=== PATIENT | female | born 1980 | race Two or more races ===

== ENCOUNTER 2023-01-20 17:48 | Emergency (ER) | payer MEDICAID ==
[~2023-01-20] VITALS: Ht 154.9 cm; Wt 84.1 kg
[2023-01-20] MEDS ORDERED: ALBU18HF12 IH ×2 (17:51→19:43)
[2023-01-20 18:26] LABS: COVID AG,FIA SOURCE NASAL SWAB
[2023-01-20 19:29] LABS: INFLUENZA TYPE A NEGATIVE FOR TYPE A (NEGATIVE); INFLUENZA TYPE B NEGATIVE FOR TYPE B (NEGATIVE)
[2023-01-20 19:34] LABS: SARS-COV2 (COVID) ANTIGEN,FIA Positive (Negative)
[2023-01-20] MEDS ORDERED: NIRM1TAB4 PO ×2 (19:36→19:42)
[2023-01-20] MEDS ORDERED: IBUP-1492 PO (19:44)
[2023-01-20 19:45] VITALS: BP 127/66; PULSE 90; RESP 20; TEMP 98.9
== END 2023-01-20 19:51 | disposition home or self-care (01) ==
LOC: EMS 17:49
DX: U07.1 COVID-19 (principal); J45.909 Unspecified asthma, uncomplicated
CPT/HCPCS: 87804; 99283

== ENCOUNTER 2023-01-22 20:33 | Emergency (ER) | payer MEDICAID ==
[~2023-01-22] VITALS: Ht 152.4 cm; Wt 83.5 kg
[~2023-01-22 20:33] MED LIST: ALBU18HF12 IH; IBUP-1492 PO; NIRM1TAB4 PO
[2023-01-22 20:45] VITALS: BP 128/74; PULSE 90; RESP 17; TEMP 98.6
[2023-01-22] MEDS ORDERED: GuaiFENesin/D-METHORPHAN [SUGAR-FREE] 200-20MG/10 ML SYRUP UDCUP PO ONE (21:30)
[2023-01-22] MEDS ORDERED: ACETAMINOPHEN 500 MG TABLET PO ONE (21:30)
[2023-01-22] MEDS ORDERED: IBUPROFEN 600 MG TABLET PO ONE (21:30)
[2023-01-22] MEDS ORDERED: ALBUTEROL SULFATE HFA 90 MCG/PUFF 8 GM INHALER IH ONE (22:45)
[2023-01-22] MEDS ORDERED: PERCT PO (23:58)
[2023-01-22] MEDS ORDERED: ONDA-104 PO (23:58)
== END 2023-01-23 01:14 | disposition home or self-care (01) ==
LOC: EMS 20:35
DX: U07.1 COVID-19 (principal); R51.9 Headache, unspecified; J45.909 Unspecified asthma, uncomplicated
CPT/HCPCS: 99284; 94640; J3535